=== PATIENT | male | born 1970 | race Caucasian/White ===

== ENCOUNTER → 2020-07-17 | Outpatient (CLI) | payer BC ==
--- NOTE | 2020-07-17 08:13 | RAD ---
Examination: KNEE LEFT 2V History: Reason: Fall on left knee 07/16/20, pain and swelling Comparison/Correlation: 10/27/2016 left knee x-ray exam Findings: Total images of 2 images of the left knee were obtained. Minimal spurring of the patella noted. Spurring at the medial compartment noted. No significant knee joint effusion. No fracture or bone destruction. Impression: Mild degenerative change. Electronically signed by: Osmani Loera MD (07/17/2020 8:11 AM) [id number]
== END | disposition home or self-care (01) ==
LOC: DXRAD 07:48
PROVIDERS: ATTEND Physician Assistant Medical
DX: M17.12 Unilateral primary osteoarthritis, left knee (principal); M76.52 Patellar tendinitis, left knee
CPT/HCPCS: 73560